=== PATIENT | female | born 1940 | race Caucasian/White ===

== ENCOUNTER 2023-02-24 08:00 | Outpatient (CLI) | payer MEDICARE, OTHER ==
--- NOTE | 2023-02-24 21:51 | XRAY Report ---
PROCEDURE: Ankle 3 View LT INDICATIONS: LEFT ANKLE/FOOT PAIN TECHNIQUE: 3 views of the ankle were acquired. COMPARISON: None. FINDINGS: Bones: Generalized decreased osseous mineralization present. There is complete loss of the longitudi nal arch and advanced arthritic changes in the midfoot. Probable old healed fracture through the calc aneal neck trauma. Ankle mortise is shows severe joint space narrowing with subchondral sclerosis, an d the dome of the talus is irregular. Dorsal osteophytes are present. No focal lytic or osteoblastic lesion. Soft tissues: No tibiotalar joint effusion. Achilles tendon appears normal. IMPRESSION: Advanced mid foot arthritic changes with osteopenia and complete loss of the longitudinal arch. Probable old healed fracture through the calcaneal neck Reviewed by: Carlos Bentley MD on 02/24/2023 8:50 PM [facility] Approved by: Carlos Bentley MD on 02/24/2023 8:50 PM [facility] Station ID: [id number]
--- NOTE | 2023-02-24 21:52 | XRAY Report ---
PROCEDURE: Foot 3 View LT INDICATIONS: LEFT ANKLE/FOOT PAIN TECHNIQUE: 3 views of the foot were acquired. COMPARISON: None. FINDINGS: Bones: Osteopenia and probable old healed fracture through the calcaneal neck it. Advanced arthritic changes in the midfoot associated with complete loss of the longitudinal arch and degenerative mancia es involving the dome of the talus with dorsal anterior osteophytes at. Old healed fracture of the fo urth metatarsal present as well Soft tissues: No suspicious soft tissue calcifications or masses. 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
== END 2023-02-24 23:59 | disposition home or self-care (01) ==
LOC: DI.WOS 08:00
PROVIDERS: ATTEND Physician Assistant Surgical
DX: M19.072 Primary osteoarthritis, left ankle and foot (principal); M85.872 Other specified disorders of bone density and structure, left ankle and foot; S92.342D Displaced fracture of fourth metatarsal bone, left foot, subsequent encounter for fracture with routine healing

== ENCOUNTER 2023-02-26 07:01 | Outpatient (CLI) | payer MEDICARE, OTHER ==
--- NOTE | 2023-02-26 13:54 | Ultrasound Report ---
PROCEDURE: Retroperitoneal INDICATIONS: NEPHROLITHIASIS TECHNIQUE: Real-time scanning was performed of the retroperitoneal organs, with image documentation. COMPARISON: None. FINDINGS: Kidneys: Kidneys are normal in size. Right kidney measures 11.0 cm long; left kidney measures 11.3 cm long. Right renal cortical thickness is 1.03 cm; left renal cortical thickness is 1.65 cm. Renal simple cysts in the mid kidney measuring 1.5 and 1.1 cm. Multiple nonobstructing left renal stones wi th the largest measuring 11 mm. No hydronephrosis. Bladder: Pre-void bladder volume is 48.2 mL. Post-void residual is 0 mL. Pre-void images demonstra te no intraluminal masses or stones. On pre-void images, bilateral ureteral jets are noted with colo r Doppler interrogation. (Of note, ureteral jets may not be detectable in up to 25% of cases due to insufficient differences in specific gravity between ureteral and bladder urine). Miscellaneous: No free abdominal fluid. IMPRESSION: Nonobstructing left renal calculi with the largest measuring 11 mm. No hydronephrosis. Simple right renal cysts. Prevoid bladder volume of 48.2 mL with post void residual volume of 0 mL. Bilateral ureteral jets are visualized. Reviewed by: Radha Mar MD on 02/26/2023 1:53 PM PDT Approved by: Radha Mar MD on 02/26/2023 1:53 PM PDT Station ID: [id number]
== END 2023-02-26 07:02 | disposition home or self-care (01) ==
LOC: DI 07:01
PROVIDERS: ATTEND Internal Medicine
DX: N20.0 Calculus of kidney (principal); N32.81 Overactive bladder; N28.1 Cyst of kidney, acquired

== ENCOUNTER 2023-06-18 08:45 | Outpatient (CLI) | payer MEDICARE, OTHER ==
--- NOTE | 2023-06-18 13:25 | XRAY Report ---
PROCEDURE: Shoulder 3 View RT INDICATIONS: RIGHT SHOUDLER PAIN TECHNIQUE: 4 views of the shoulder were acquired. COMPARISON: None. FINDINGS: Bones: No fractures or dislocations. No suspicious bony lesions. Visualized ribs appear intact. Severe glenohumeral joint degenerative change with large osteophyte and severe joint space loss. AC j oint hypertrophy. Soft tissues: No suspicious soft tissue calcifications. The visualized lungs are within normal limi ts. IMPRESSION: Severe glenohumeral joint degenerative change. Reviewed by: Carlito Platt MD on 06/18/2023 1:24 PM PST Approved by: Carlito Platt MD on 06/18/2023 1:24 PM PST Station ID: [id number]
== END 2023-06-18 23:59 | disposition home or self-care (01) ==
LOC: DI.WOS 08:45
PROVIDERS: ATTEND Orthopaedic Surgery
DX: M19.011 Primary osteoarthritis, right shoulder (principal)

== ENCOUNTER 2023-12-15 17:10 | Outpatient (CLI) | payer MEDICARE, OTHER | END 2023-12-15 23:59 | disposition EMS.NT | LOC: EMS 17:10 | DX: Z03.89 Encounter for observation for other suspected diseases and conditions ruled out (principal) ==